=== PATIENT | female | born 1940 | race Caucasian/White ===

== ENCOUNTER → 2019-08-15 | Outpatient (CLI) | payer MEDICAID ==
[~2019-08-15] MED LIST: ACET-2708 PO; ALBU90AE IH; ALEN70TA68 PO; CALC-1280 PO; CETI10TA6 PO; FLUT200B IH; MAG-149 PO; NIFE90TA60 PO; OMEP40CA12 PO
== END | disposition home or self-care (01) ==
LOC: LAB 08-14 16:40
PROVIDERS: ATTEND Ophthalmology
DX: Z01.818 Encounter for other preprocedural examination (principal); Z11.59 Encounter for screening for other viral diseases
CPT/HCPCS: C9803; U0003

== ENCOUNTER 2019-08-19 05:49 | Day surgery (SDC) | payer MEDICAID ==
[~2019-08-19] VITALS: Ht 157.5 cm; Wt 81.6 kg
[2019-08-19] MEDS ORDERED: PHENYLEPHRINE HCL 10% OPHTH DROPS 5ML RIGHTEYE NR (06:00)
[2019-08-19] MEDS ORDERED: TROPICAMIDE 1% OPHTH DROPS 15ML RIGHTEYE NR (06:00)
[2019-08-19] MEDS ORDERED: CYCLOPENTOLATE HCL 1% OPHTH DROPS 2ML RIGHTEYE NR (06:00)
[2019-08-19] MEDS ORDERED: LACTATED RINGERS 1,000 ML IV SCH (06:30)
[2019-08-19] MEDS ORDERED: BALANCED SALT IRRIG SOLN COMB1 500ML OP ONE (06:30)
[2019-08-19 06:44] LABS: BASOPHILS % 0.9 % (0.0-2.0); HEMATOCRIT. 39.7 % (36.0-48.0); HEMOGLOBIN. 13.6 g/dL (12.0-16.0); LYMPHOCYTES % 25.7 % (20.0-50.0); MEAN CORPUSCULAR HEMOGLOBIN 29.8 pg (28.0-32.0); MEAN CORPUSCULAR VOLUME 87.4 fL (81.0-99.0); MEAN PLATELET VOLUME 8.2 fl (7.4-10.4); MONOCYTES % 12.1 % (2.0-8.0); NEUTROPHILS % 60.3 % (40.0-76.0); PLATELET 270 x1000/uL (130-400); RED BLOOD CELL COUNT 4.55 mill/uL (4.2-5.4); RED CELL DISTRIBUTION WIDTH 14.2 % (11.6-14.6)
[2019-08-19] MEDS ORDERED: HYALURONATE SODIUM 10 MG/ML 0.55ML SYRINGE IO ONE (06:44)
[2019-08-19 06:49] LABS: CHLORIDE 112 mEq/L (98-107)
[2019-08-19] MEDS ORDERED: FENTANYL CITRATE/PF 50MCG/ML 2ML VIAL ONE (07:29)
[2019-08-19] MEDS ORDERED: MIDAZOLAM HCL 2 MG/2 ML VIAL ONE (07:29)
[2019-08-19] MEDS ORDERED: LIDOCAINE HCL/PF 2% 20 MG/ML 10ML VIAL ONE (11:48)
[2019-08-19] MEDS ORDERED: CYCLOPENTOLATE HCL 1% OPHTH DROPS 2ML ONE (11:48)
[2019-08-19] MEDS ORDERED: CIPROFLOXACIN 0.3% OPHTH SOLN 2.5ML ONE (11:48)
[2019-08-19] MEDS ORDERED: TETRACAINE 0.5% OPHTH DROPS 4ML ONE (11:48)
[2019-08-19] MEDS ORDERED: BALANCED SALT IRRIG SOLN 15ML ONE (11:48)
[2019-08-19] MEDS ORDERED: PREDNISOLONE ACETATE 1% OPHTH DROPS 5ML ONE (11:48)
[2019-08-19] MEDS ORDERED: NEO/POLYMYX B SULF/DEXAMETH OPHTH OINT 3.5GM ONE (11:48)
== END 2019-08-19 09:50 | disposition home or self-care (01) ==
LOC: OR 05:49
PROVIDERS: ATTEND Ophthalmology
DX: H25.89 Other age-related cataract (principal); K21.9 Gastro-esophageal reflux disease without esophagitis; I10 Essential (primary) hypertension; E66.01 Morbid (severe) obesity due to excess calories; R01.1 Cardiac murmur, unspecified; M19.90 Unspecified osteoarthritis, unspecified site; J30.2 Other seasonal allergic rhinitis; Z91.018 Allergy to other foods; Z88.8 Allergy status to other drugs, medicaments and biological substances; Z79.899 Other long term (current) drug therapy; Z68.32 Body mass index [BMI] 32.0-32.9, adult
CPT/HCPCS: 36415; 66984; 80048; 85025; 93005; J2250; J3010; J3490; V2632

== ENCOUNTER → 2019-09-26 | Outpatient (CLI) | payer MEDICAID | END | disposition home or self-care (01) | LOC: LAB 12:18 | PROVIDERS: ATTEND Ophthalmology | DX: Z01.818 Encounter for other preprocedural examination (principal); Z11.59 Encounter for screening for other viral diseases; H26.9 Unspecified cataract | CPT/HCPCS: C9803; U0003 ==

== ENCOUNTER → 2019-09-30 | Day surgery (SDC) | payer MEDICAID ==
[~2019-09-30] VITALS: Ht 157.5 cm; Wt 81.6 kg
[~2019-09-30] MED LIST changes: +BALANCED SALT IRRIG SOLN 15ML ONE; +BALANCED SALT IRRIG SOLN COMB1 500ML OP SCH; +CIPROFLOXACIN 0.3% OPHTH SOLN 2.5ML ONE; +CYCLOPENTOLATE HCL 1% OPHTH DROPS 2ML LEFTEYE ONE; +CYCLOPENTOLATE HCL 1% OPHTH DROPS 2ML ONE; +FENTANYL CITRATE/PF 50MCG/ML 2ML VIAL ONE; +HYALURONATE SODIUM 10 MG/ML 0.55ML SYRINGE IO ONE; +KETOROLAC 30MG/ML VIAL ONE; +LACTATED RINGERS 1,000 ML IV SCH; +LIDOCAINE HCL/PF 2% 20 MG/ML 10ML VIAL ONE; +MIDAZOLAM HCL 2 MG/2 ML VIAL ONE; +PHENYLEPHRINE HCL 10% OPHTH DROPS 5ML LEFTEYE ONE; +PHENYLEPHRINE HCL 10% OPHTH DROPS 5ML ONE; +PREDNISOLONE ACETATE 1% OPHTH DROPS 5ML ONE; +TETRACAINE 0.5% OPHTH DROPS 4ML ONE; +TROPICAMIDE 1% OPHTH DROPS 15ML LEFTEYE ONE; +TROPICAMIDE 1% OPHTH DROPS 15ML ONE; +TRYPAN BLUE 0.5 ML DISP.SYRIN IO ONE
== END | disposition home or self-care (01) ==
LOC: OR 06:56
PROVIDERS: ATTEND Ophthalmology
DX: H25.89 Other age-related cataract (principal); I10 Essential (primary) hypertension; K21.9 Gastro-esophageal reflux disease without esophagitis; M19.90 Unspecified osteoarthritis, unspecified site; Z79.899 Other long term (current) drug therapy; Z98.890 Other specified postprocedural states; Z88.8 Allergy status to other drugs, medicaments and biological substances
CPT/HCPCS: 66984; J1885; J2250; J3010; J3490; Q9957; V2632